=== PATIENT | male | born 1960 | race Caucasian/White ===

== ENCOUNTER 2016-03-28 18:55 | Emergency (ER) | payer SELFPAY ==
[~2016-03-28] VITALS: Ht 182.9 cm; Wt 81.8 kg
[2016-03-28 19:03] VITALS: BP 156/102; PULSE 93; RESP 18; O2SAT 93
[2016-03-28] MEDS ORDERED: LISI10TA3 PO (19:08)
--- NOTE | 2016-03-28 19:28 | PD ---
HPI Chief Complaint: Alcohol/Drug Intoxication Time Seen by Provider: 19:17 Travel History International Travel<30 days: No Contact w/Intl Traveler<30days: No Traveled to known affect area: No History of Present Illness HPI 55 yo M arrives by EMS. He was found about knee deep in a [place] adjacent to a [employer]. He drank approx 6 cans of beer today, as he does everyday. He is visiting for the racing car event at the [place] [facility]. He denies drug use. He smokes 1/2 PPD. No medical complaint offered. He states he has a ride home with his brother. PFSH Past Medical History Hypertension: Yes Tetanus Vaccination: Unknown Influenza Vaccination: No Past Surgical History Surgical History: No Previous Surgery Social History Alcohol Use: Yes (daily) Tobacco Use: Yes (1 ppd) Substance Use: No Allergies-Medications (Allergen,Severity, Reaction): Coded Allergies: No Known Allergies (Unverified , 03/28/16) Reported Meds & Prescriptions Reported Meds & Active Scripts Active Reported Lisinopril 20 Mg Tab 20 Mg PO DAILY Review of Systems Except as stated in HPI: all other systems reviewed are Neg General / Constitutional: No: Fever, Chills Psychiatric: Positive: Substance Abuse (alcoholism) Physical Exam Narrative GENERAL: WNWD 55 yo M, NAD, etoh intoxication affect, speaking full sentences, reasonably cooperative though anxious to leave, mildly dishevelled SKIN: Warm and dry. HEAD: Atraumatic. Normocephalic. EYES: Pupils equal and round. No scleral icterus. No injection or drainage. ENT: No nasal bleeding or discharge. Mucous membranes pink and moist. NECK: Trachea midline. No JVD. CARDIOVASCULAR: Mild tachycardia. Sinus rhythm. RESPIRATORY: No accessory muscle use. Breath sounds equal bilaterally. GASTROINTESTINAL: Abdomen soft, non-tender, nondistended. Hepatic and splenic margins not palpable. MUSCULOSKELETAL: Extremities without clubbing, cyanosis, or edema. No obvious deformities. NEUROLOGICAL: Awake and alert. No obvious cranial nerve deficits. Motor grossly within normal limits. Five out of 5 muscle strength in the arms and legs. Slight slurring of speech c/w alcohol intoxication. PSYCHIATRIC: EtOH intox. Reasonably cooperative. Data Data Last Documented VS Vital Signs Date Time Temp Pulse Resp B/P Pulse Ox O2 Delivery O2 Flow Rate FiO2 03/28/16 19:03 93 18 156/102 93 MDM Medical Decision Making Medical Screen Exam Complete: Yes Emergency Medical Condition: Yes Medical Record Reviewed: Yes Differential Diagnosis etoh intoxication, alcoholism, SOFIE Narrative Course Pt demonstrates acceptable degree of sobriety: ambulatory with steady gate, conversing normally though eager to leave, [id number], pt has a ride home with his brother, who he called and will come pick him up and patient support associate the patient home. He refused blood work and demonstrates capacity for independent decision making. Security has confirmed they will not let the patient leave the department until his brother arrives to take the patient home. Diagnosis Primary Impression: Alcohol intoxication Qualified Code: F10.129 - Alcohol intoxication, with unspecified complication Additional Instructions: Please drink only in moderation. It is best to quit smoking as soon as possible. Med/Other Pt SpecificInfo: No Change to Meds Disposition: 01 DISCHARGE HOME Condition: Stable Ramiro Ardon MD Mar 28, 2016 19:28
[2016-03-28] MEDS ORDERED: LISI-515 PO (21:01)
== END 2016-03-28 21:00 | disposition home or self-care (01) ==
LOC: NEPE 18:55
DX: F10.129 Alcohol abuse with intoxication, unspecified (principal); I10 Essential (primary) hypertension; R00.0 Tachycardia, unspecified; F17.210 Nicotine dependence, cigarettes, uncomplicated
CPT/HCPCS: 99284

== ENCOUNTER 2016-03-28 20:38 | Emergency (ER) | payer SELFPAY ==
[~2016-03-28 20:38] MED LIST: LISI10TA3 PO
[2016-03-28 20:56] VITALS: BP 162/102; PULSE 112; RESP 16; TEMP 98.2; O2SAT 90
[2016-03-28] MEDS ORDERED: SODIUM CHLORIDE 0.9% FLUSH 5 ML FLUSH IVF PRN (21:00)
[2016-03-28] MEDS ORDERED: SODIUM CHLOR 0.9% 1000 ML INJ 1,000 ML IV ONE ×2 (21:00→22:30)
[2016-03-28] MEDS ORDERED: LISI-515 PO (21:01)
--- NOTE | 2016-03-28 21:32 | PD ---
HPI Chief Complaint: Alcohol/Drug Intoxication Time Seen by Provider: 21:30 Travel History International Travel<30 days: No Contact w/Intl Traveler<30days: No Traveled to known affect area: No History of Present Illness HPI Patient's 55-year-old male who was brought back to the emergency Department under a Asif's act for all intoxication. Patient was just discharged from the emergency department at 1930, he was advised to wait in the waiting room for his ride was his brother. Patient decided to instead go to the [place] and drink a [employer] hard lemonade. He was then brought back to the ER. He has no physical complaints at this time. He does endorse alcohol use. [facility] Past Medical History Hypertension: Yes Social History Alcohol Use: Yes (daily) Tobacco Use: Yes (1 ppd) Substance Use: No Allergies-Medications (Allergen,Severity, Reaction): Coded Allergies: No Known Allergies (Unverified , 03/28/16) Reported Meds & Prescriptions Reported Meds & Active Scripts Active Reported Lisinopril 20 Mg Tab 20 Mg PO DAILY Review of Systems ROS Limitations: Intoxication Except as stated in HPI: all other systems reviewed are Neg Physical Exam Exam Limitations: Intoxication Narrative GENERAL: Well-nourished, well-developed patient. SKIN: Warm and dry. HEAD: Normocephalic. EYES: No scleral icterus. No injection or drainage. NECK: Supple, trachea midline. No JVD or lymphadenopathy. CARDIOVASCULAR: Tachycardic without murmurs, gallops, or rubs. RESPIRATORY: Breath sounds equal bilaterally. No accessory muscle use. GASTROINTESTINAL: Abdomen soft, non-tender, nondistended. MUSCULOSKELETAL: No cyanosis, or edema. BACK: Nontender without obvious deformity. No CVA tenderness. Data Data Last Documented VS Vital Signs Date Time Temp Pulse Resp B/P Pulse Ox O2 Delivery O2 Flow Rate FiO2 03/29/16 02:01 105 16 93 Room Air 03/29/16 01:32 150/88 03/28/16 21:30 2 03/28/16 20:56 98.2 Orders Sodium Chloride 0.9% Flush (Ns Flush) (03/28/16 21:00) Sodium Chlor 0.9% 1000 Ml Inj (Ns 1000 M (03/28/16 21:00) Iv Access Insert/Monitor (03/28/16 21:29) Sodium Chlor 0.9% 1000 Ml Inj (Ns 1000 M (03/28/16 22:30) Lorazepam Inj (Ativan Inj) (03/29/16 01:15) Lorazepam Inj (Ativan Inj) (03/29/16 03:30) MDM Medical Decision Making Medical Screen Exam Complete: Yes Emergency Medical Condition: Yes Medical Record Reviewed: Yes Interpretation(s) Vital Signs Date Time Temp Pulse Resp B/P Pulse Ox O2 Delivery O2 Flow Rate FiO2 03/28/16 20:56 98.2 112 16 162/102 90 Differential Diagnosis Acute intoxication versus dehydration versus electrolyte abnormality versus cardiac arrhythmia versus other Narrative Course Patient is a 55-year-old male presenting to emergency under Ham's act for public intoxication. Patient is mildly tachycardic with a rate of 112-120. IV access was established and IV fluids initiated. We'll continue to monitor. He appears mildly intoxicated, he is able to answer questions appropriately. He denies any physical complaints at this time. Care of patient transferred to Catarino TRIANA who will determine his disposition. Elizabeth Holder Mar 28, 2016 21:32
--- NOTE | 2016-03-29 01:04 | PD ---
Physical Exam Narrative Patient was signed out to me by Elizabeth REZA pending IV hydration and reassessment. Please see her documentation for full H&P. Patient reassessed wanting to leave. However patient is still tachycardic. Patient reports that over the past week he has been trying to cut down on drinking alcohol. Patient states he normally drinks roughly a 12 pack of beer a day, but has only been drinking approximately 6 a day over the past week has joined as he is trying to quit. Patient denies other complaints or concerns. Denies any chest pain, shortness of breath, nausea, vomiting, or fevers. Patient states wants to leave because he has to go to work in the morning he is not sleeping well here. GENERAL: Well-developed, overly nourished, in no acute distress, and non-ill appearing. SKIN: Warm and dry. HEAD: Atraumatic. Normocephalic. EYES: Pupils equal and round. EOMI. No scleral icterus. No injection or drainage. ENT: No nasal bleeding or discharge. Mucous membranes pink and moist. NECK: Trachea midline. Supple. No nuclear rigidity. CARDIOVASCULAR: Mildly tachycardia rate and regular rhythm. No murmur appreciated. RESPIRATORY: No accessory muscle use. No respiratory distress. Clear to auscultation. Breath sounds equal bilaterally. MUSCULOSKELETAL: No obvious deformities. No clubbing. No cyanosis. No edema. Full range of motion. NEUROLOGICAL: Awake and alert. No obvious cranial nerve deficits. Motor grossly within normal limits. Normal speech. PSYCHIATRIC: Appropriate mood and affect; insight and judgment normal. Data Data Last Documented VS Vital Signs Date Time Temp Pulse Resp B/P Pulse Ox O2 Delivery O2 Flow Rate FiO2 03/29/16 02:01 105 16 93 Room Air 03/29/16 01:32 150/88 03/28/16 21:30 2 03/28/16 20:56 98.2 Orders Sodium Chloride 0.9% Flush (Ns Flush) (03/28/16 21:00) Sodium Chlor 0.9% 1000 Ml Inj (Ns 1000 M (03/28/16 21:00) Iv Access Insert/Monitor (03/28/16 21:29) Sodium Chlor 0.9% 1000 Ml Inj (Ns 1000 M (03/28/16 22:30) Lorazepam Inj (Ativan Inj) (03/29/16 01:15) Lorazepam Inj (Ativan Inj) (03/29/16 03:30) [facility] Supervised Visit with SIRI: No Narrative Course Patient was seen and examined. The patient's port alcohol history and inability to sleep. Patient will be given Ativan to prevent alcohol withdrawal and patient will be continue to be monitored in the emergency department until clinically sober and able to ambulate on their own or until a sober responsible adult comes to pick them up at that time Ham's act will be lifted. RN is aware of this. [id number] patient sitting on the side of his bed requesting to leave. Patient states he feels much better now. Patient is able to ambulate on his own without difficulty. Patient states he has a history of high blood pressure last took his blood pressure medicine yesterday morning. Patient states his heart rate is normally runs between 115 and 120, but does improve some with takes his blood pressure medicine. Patient continues to deny any chest pain, shortness of breath, back pain, nausea, vomiting, abdominal pain, headaches, neck pain, numbness or tingling anywhere, palpitations, dizziness, lightheadedness, or other medical concerns. Patient agrees to return to the emergency department immediately for any of these symptoms or for any other emergent concerns. Patient currently shows no signs of intoxication and is stable for discharge. Further instructions and recommendations were detailed in discharge paperwork. Pt ambulated without difficulty out of ED at discharge. Diagnosis Primary Impression: Alcohol intoxication Qualified Code: F10.120 - Alcohol intoxication, uncomplicated Referrals: [facility] Patient Instructions: Alcohol Dependence (ED), General Instructions Additional Instruction: Follow-up with your primary care physician this week for evaluation. Continue cutting back on alcohol use. Return to the emergency department if symptoms get worse. Disposition: 01 DISCHARGE HOME Condition: Stable Dylon Crain Mar 29, 2016 01:04
[2016-03-29] MEDS ORDERED: LORazepam 2 MG/ML VIAL IV PUSH ONE ×2 (01:15→03:30)
[2016-03-29 01:28] VITALS: BP 167/103; PULSE 118; RESP 16; O2SAT 92
[2016-03-29 01:32] VITALS: BP 150/88; PULSE 105; RESP 16; O2SAT 87
[2016-03-29 02:01] VITALS: PULSE 105; RESP 16; O2SAT 93
== END 2016-03-29 06:16 | disposition home or self-care (01) ==
LOC: NEPA 20:38
DX: F10.120 Alcohol abuse with intoxication, uncomplicated (principal); I10 Essential (primary) hypertension; R00.0 Tachycardia, unspecified; F17.210 Nicotine dependence, cigarettes, uncomplicated
CPT/HCPCS: 96361; 96374; 96376; 99284; J2060; J7030